=== PATIENT | male | born 1975 | race Caucasian/White ===

== ENCOUNTER 2021-06-11 03:45 | Emergency (ER) | payer SELFPAY ==
[2021-06-11 04:04] VITALS: BP 140/74; PULSE 84; BMI 33.2
[2021-06-11] MEDS ORDERED: IBUPROFEN 600 MG TABLET (FP) PO ONE ×2 (04:15→04:17)
[2021-06-11 04:52] VITALS: TEMP 100.1
[2021-06-12 14:09] LABS: SARS-CoV-2 NAA Not Detected (Not Detected)
== END 2021-06-11 04:54 | disposition home or self-care (01) ==
LOC: FER 03:45
DX: R50.9 Fever, unspecified (principal)
CPT/HCPCS: 99283-25; C9803; U0003; U0005

== ENCOUNTER 2022-06-02 13:06 | Emergency (ER) | payer OTHER ==
[2022-06-02] MEDS ORDERED: ACETAMINOPHEN 325 MG TABLET (FP) PO ONE (13:15)
[2022-06-02] MEDS ORDERED: METHOCARBAMOL 500 MG TABLET PO ONE (13:15)
[2022-06-02] MEDS ORDERED: KETOROLAC TROMETHAMINE 30 MG/1 ML VIAL IM ONE (13:15)
[2022-06-02 13:16] VITALS: BP 155/94; PULSE 110; RESP 18; TEMP 98.2; BMI 36.2
[2022-06-02] MEDS ORDERED: ACETAMINOPHEN 500 MG TABLET (FP) ONE (13:18)
[2022-06-02] MEDS ORDERED: METHOCARBAMOL 500 MG TABLET ONE (13:19)
[2022-06-02] MEDS ORDERED: KETOROLAC TROMETHAMINE 30 MG/1 ML VIAL ONE (13:19)
== END 2022-06-02 13:42 | disposition home or self-care (01) ==
LOC: FER 13:06
DX: M54.2 Cervicalgia (principal)
CPT/HCPCS: 99283-25

== ENCOUNTER 2022-11-26 03:55 | Inpatient (IN) | payer OTHER ==
[2022-11-25 14:59] VITALS: BMI 38.3
[2022-11-26] MEDS ORDERED: GENTAMICIN SO4 80 MG/2 ML VIAL ONE (07:17)
[2022-11-26] MEDS ORDERED: THROMBIN (BOVINE) 5,000 UNIT VIAL TP ONE ×2 (07:18→09:17)
[2022-11-26] MEDS ORDERED: ceFAZolin SODIUM 1 GM VIAL IVPB ONE (08:33)
[2022-11-26] MEDS ORDERED: VANCOMYCIN 1,000 MG VIAL (RESTRICTED TO ID ONLY) IVPB ONE (08:34)
[2022-11-26] MEDS ORDERED: GENTAMICIN SO4 80 MG/2 ML VIAL IVPB ONE (09:15)
[2022-11-26] MEDS ORDERED: HYDROGEN PEROXIDE 473 ML PO ONE (09:16)
[2022-11-26] MEDS ORDERED: BUPIVACAINE HCL/PF 0.5% (5MG/ML) 10 ML VIAL ONE (09:25)
[2022-11-26] MEDS ORDERED: ONDANSETRON 4 MG/2 ML VIAL IVPUSH PRN ×3 (10:38→11:33)
[2022-11-26] MEDS ORDERED: ACETAMINOPHEN 500 MG TABLET (FP) PO PRN ×2 (10:38→11:33)
[2022-11-26] MEDS ORDERED: CYCLOBENZAPRINE HCL 10 MG TABLET (FP) PO PRN ×2 (11:25→11:29)
[2022-11-26] MEDS ORDERED: BENZOCAINE/MENTH/CETYLPYRD CL 1 EACH LOZENGE MM PRN ×2 (11:27→11:29)
[2022-11-26] MEDS ORDERED: diphenhydrAMINE HCL 25 MG CAPSULE (FP) PO PRN (11:33)
[2022-11-26] MEDS ORDERED: oxyCODONE HCL 5 MG TABLET PO PRN (11:33)
[2022-11-26] MEDS ORDERED: morphine CARPU-JECT 4 MG/1 ML DISP.SYRIN IVPUSH PRN (11:33)
[2022-11-26] MEDS ORDERED: ACETAMINOPHEN INJECTION 100 ML IVPB ONE (12:12)
[2022-11-26] MEDS: ACETAMINOPHEN 1000 MG/100 ML BAG IVPB SCH ×2 (12:13→20:36)
[2022-11-26] MEDS: LACTATED RINGERS SOLUTION 1,000 ML/1,000 ML INFUS.BAG IV SCH (12:30)
[2022-11-26] MEDS: oxyCODONE HCL 5 MG TABLET PO PRN (15:05)
[2022-11-26] MEDS: DOCUSATE SODIUM 100 MG CAPSULE (FP) PO SCH ×2 (15:06→21:51)
[2022-11-26] MEDS: CEFAZOLIN 1 GM in DEXTROSE 5%-WATER - 50 ML IVPB SCH ×2 (16:17→18:46)
[2022-11-26] MEDS: GABAPENTIN 300 MG CAPSULE PO SCH ×2 (17:45→21:52)
[2022-11-26] MEDS: morphine SULFATE 4 MG/ML VIAL IVPUSH PRN (17:55)
[2022-11-26] MEDS ORDERED: ACETAMINOPHEN 1000 MG/100 ML BAG IVPB SCH (20:00)
[2022-11-27] MEDS: CEFAZOLIN 1 GM in DEXTROSE 5%-WATER - 50 ML IVPB SCH ×3 (01:17→17:32)
[2022-11-27] MEDS: ACETAMINOPHEN 1000 MG/100 ML BAG IVPB SCH ×4 (02:00→22:56)
[2022-11-27] MEDS: DOCUSATE SODIUM 100 MG CAPSULE (FP) PO SCH ×3 (06:01→22:56)
[2022-11-27] MEDS: morphine SULFATE 4 MG/ML VIAL IVPUSH PRN ×3 (06:08→20:22)
[2022-11-27] MEDS: GABAPENTIN 300 MG CAPSULE PO SCH ×2 (09:10→22:56)
[2022-11-27] MEDS: FOLIC ACID 1 MG TABLET (FP) PO SCH (09:10)
[2022-11-27] MEDS: HEPARIN NA (PORCINE) 5,000 UNITS/ML 1ML VIAL SQ SCH ×2 (09:10→17:31)
[2022-11-27] MEDS: POLYETHYLENE GLYCOL (HEALTHYLAX) 3350 17 GM PACKET PO SCH (09:10)
[2022-11-27] MEDS: FERROUS SO4 325 MG TABLET (FP) PO SCH (09:10)
[2022-11-27 09:26] LABS: HEMATOCRIT 38.7 % (35.4-49); HEMOGLOBIN 13.2 GM/dL (11.7-16.9); MCH 30.8 pg (25.7-33.7); MCHC 34.1 g/dl (32.0-35.9); MEAN CELL VOLUME 90.3 fl (80-96); PLATELET COUNT 253 10^3/uL (134-434); RBC 4.29 M/mm3 (4.00-5.60); RDW 12.4 % (11.9-15.9); WHITE BLOOD COUNT 13.3 K/mm3 (4.0-10.0)
[2022-11-27 10:56] LABS: CALCIUM 8.8 mg/dL (8.5-10.1)
[2022-11-27 10:57] LABS: BLOOD UREA NITROGEN 18.6 mg/dL (7-18)
[2022-11-27 11:00] LABS: CREATININE 0.8 mg/dL (0.55-1.3)
[2022-11-27] MEDS: LACTATED RINGERS SOLUTION 1,000 ML/1,000 ML INFUS.BAG IV SCH (12:09)
[2022-11-27] MEDS: oxyCODONE HCL 5 MG TABLET PO PRN (17:51)
[2022-11-27 21:49] VITALS: RESP 18
[2022-11-28] MEDS: CEFAZOLIN 1 GM in DEXTROSE 5%-WATER - 50 ML IVPB SCH ×2 (03:03→09:21)
[2022-11-28] MEDS: HEPARIN NA (PORCINE) 5,000 UNITS/ML 1ML VIAL SQ SCH ×2 (03:04→09:21)
[2022-11-28] MEDS: oxyCODONE HCL 5 MG TABLET PO PRN ×2 (03:07→06:58)
[2022-11-28] MEDS ORDERED: LACTATED RINGERS SOLUTION 1,000 ML/1,000 ML INFUS.BAG IV SCH (04:57)
[2022-11-28] MEDS: ACETAMINOPHEN 1000 MG/100 ML BAG IVPB SCH ×2 (05:00→10:37)
[2022-11-28] MEDS: DOCUSATE SODIUM 100 MG CAPSULE (FP) PO SCH (06:30)
[2022-11-28] MEDS: morphine SULFATE 4 MG/ML VIAL IVPUSH PRN (08:58)
[2022-11-28] MEDS: POLYETHYLENE GLYCOL (HEALTHYLAX) 3350 17 GM PACKET PO SCH (09:22)
[2022-11-28] MEDS: FERROUS SO4 325 MG TABLET (FP) PO SCH (09:22)
[2022-11-28] MEDS: FOLIC ACID 1 MG TABLET (FP) PO SCH (09:22)
[2022-11-28] MEDS: GABAPENTIN 300 MG CAPSULE PO SCH (09:22)
[2022-11-28 11:46] VITALS: BP 147/89; PULSE 95; TEMP 98
== END 2022-11-28 11:35 | disposition home or self-care (01) | DRG 321 ==
LOC: J2C 03:55 → J8W 13:13
PROVIDERS: ADMIT Internal Medicine; ATTEND Nurse Practitioner Family
PROC: 00NW0ZZ Release Cervical Spinal Cord, Open Approach (ICD-10-PCS; 2022-11-26)
PROC: 0RB30ZZ Excision of Cervical Vertebral Disc, Open Approach (ICD-10-PCS; 2022-11-26)
PROC: 4A10X4G Monitoring of Central Nervous Electrical Activity, Intraoperative, External Approach (ICD-10-PCS; 2022-11-26)
PROC: 0RG20A0 Fusion of 2 or more Cervical Vertebral Joints with Interbody Fusion Device, Anterior Approach, Anterior Column, Open Approach (ICD-10-PCS; principal; 2022-11-26 08:00)
DX: M47.12 Other spondylosis with myelopathy, cervical region (principal); M40.292 Other kyphosis, cervical region
CPT/HCPCS: 36415; 72125-TC; 76000-TC-FY; 80048; 85027; 86850; 86900; 86901; 94760; 97116-GP; 97161-GP; J1644

== ENCOUNTER 2023-10-26 22:10 | Emergency (ER) | payer OTHER ==
[2023-10-26] MEDS ORDERED: GABAPENTIN 300 MG CAPSULE PO ONE (22:24)
[2023-10-26 22:36] VITALS: PULSE 112; TEMP 98; BMI 37.6
[2023-10-26 22:37] VITALS: BP 160/112; RESP 20
[2023-10-26] MEDS ORDERED: GABAPENTIN 300 MG CAPSULE ONE (22:38)
[2023-10-26] MEDS ORDERED: ALPRAZolam 0.25 MG TABLET ONE (22:39)
[2023-10-26] MEDS ORDERED: ALPRAZolam 1 MG TABLET PO PRN (22:45)
== END 2023-10-26 22:44 | disposition home or self-care (01) ==
LOC: FER 22:10
DX: R20.0 Anesthesia of skin (principal); R20.2 Paresthesia of skin; V87.7XXA Person injured in collision between other specified motor vehicles (traffic), initial encounter; Y92.410 Unspecified street and highway as the place of occurrence of the external cause
CPT/HCPCS: 99283-25

== ENCOUNTER 2024-05-24 04:32 | Day surgery (SDC) | payer OTHER ==
[2024-05-24] MEDS ORDERED: LIDOCAINE HCL/PF 1% SDV 5ML VIAL ONE (07:20)
[2024-05-24] MEDS ORDERED: DEXAMETHASONE SOD PHOSPHATE 10 MG/1 ML VIAL ONE (07:20)
[2024-05-24 09:45] VITALS: BMI 38.3
[2024-05-24] MEDS ORDERED: MIDAZOLAM HCL 2 MG/2 ML SINGLE DOSE VIAL ONE (10:27)
[2024-05-24] MEDS: IOHEXOL 180 MG/1 ML ML IJ ONE (10:31)
[2024-05-24] MEDS: DEXAMETHASONE SOD PHOSPHATE 10 MG/1 ML VIAL IVPUSH ONE (10:31)
[2024-05-24] MEDS: LIDOCAINE 1% P/F 10 MG/ML VIAL PNB ONE (10:32)
[2024-05-24] MEDS: BUPIVACAINE HCL/PF 0.25% (2.5MG/ML) 10 ML VIAL IJ ONE (10:32)
[2024-05-24 13:06] VITALS: BP 132/77; PULSE 91; RESP 20; TEMP 97.3
== END 2024-05-24 11:05 | disposition home or self-care (01) ==
LOC: JASU-SURG 04:32
PROVIDERS: ATTEND Physical Medicine & Rehabilitation
PROC: 3E0R3BZ Introduction of Anesthetic Agent into Spinal Canal, Percutaneous Approach (ICD-10-PCS; 2024-05-24)
PROC: 3E0R33Z Introduction of Anti-inflammatory into Spinal Canal, Percutaneous Approach (ICD-10-PCS; principal; 2024-05-24 11:00)
DX: M54.16 Radiculopathy, lumbar region (principal); M54.50 Low back pain, unspecified
CPT/HCPCS: 76000-TC-FY; J1100